=== PATIENT | female | born 1985 | race Caucasian/White ===

== ENCOUNTER → 2024-02-19 11:12 | Outpatient (REF) | payer BC, SELFPAY | LOC: HWWDC 11:12 | PROVIDERS: ATTENDING PHYSICIAN Nurse Practitioner | DX: Z12.31 Encounter for screening mammogram for malignant neoplasm of breast (principal) | CPT/HCPCS: 77063; 77067 ==

== ENCOUNTER → 2025-07-12 11:39 | Outpatient (REF) | payer BC, SELFPAY | LOC: HWWDC 11:39 | PROVIDERS: ATTENDING PHYSICIAN Advanced Practice Midwife | DX: Z12.31 Encounter for screening mammogram for malignant neoplasm of breast (principal) | CPT/HCPCS: 77063; 77067 ==